=== PATIENT | male | born 1970 | race Hispanic/Latino ===

== ENCOUNTER 2018-10-08 05:30 | Day surgery (SDC) | payer BC ==
[2018-10-08] VITALS (8 sets, daily range): BP systolic 95–127; BP diastolic 40–75
[~2018-10-08] VITALS: Ht 170.2 cm; Wt 85.3 kg
[~2018-10-08 05:30] MED LIST: ASPI-555 PO; ASPI1CPM8 PO; GLYB2.5 PO; LISI-613 PO; METF-527 PO; MULT-1082 PO; OMEG-148 PO; PRAV20TA4 PO; UBID50TA3 PO; VITA1TAB39 PO
[2018-10-08] MEDS ORDERED: SODIUM CHLORIDE 0.9% 1000ML 1,000 ML IV ONE (06:35)
[2018-10-08] MEDS ORDERED: PROPOFOL 10 MG/ML 20ML VIAL IV ONE (07:01)
[2018-10-08] MEDS ORDERED: PHENYLEPHRINE HCL 10 MG/ML 1ML VIAL IV ONE (07:22)
[2018-10-08] MEDS ORDERED: SODIUM CHLORIDE 0.9% 10 ML VIAL ONE (07:22)
== END 2018-10-08 08:00 | disposition home or self-care (01) ==
LOC: DAH 05:30 → ENDO 05:30
PROVIDERS: ATTEND Internal Medicine
DX: Z12.11 Encounter for screening for malignant neoplasm of colon (principal); K63.5 Polyp of colon; K57.30 Diverticulosis of large intestine without perforation or abscess without bleeding; K64.0 First degree hemorrhoids; I10 Essential (primary) hypertension; E78.5 Hyperlipidemia, unspecified; E11.9 Type 2 diabetes mellitus without complications; F15.90 Other stimulant use, unspecified, uncomplicated; Z79.84 Long term (current) use of oral hypoglycemic drugs; Z79.899 Other long term (current) drug therapy; Z79.82 Long term (current) use of aspirin; Z72.89 Other problems related to lifestyle; Z86.73 Personal history of transient ischemic attack (TIA), and cerebral infarction without residual deficits; Z82.49 Family history of ischemic heart disease and other diseases of the circulatory system; Z83.3 Family history of diabetes mellitus
CPT/HCPCS: 45380; 82948; 88305; 93005; A4606; J2370; J2704; J7030